=== PATIENT | male | born 1960 | race Asian ===

== ENCOUNTER 2022-02-01 19:12 | Emergency (ER) | payer OTHER ==
[~2022-02-01] VITALS: Ht 160 cm; Wt 54.0 kg
[2022-02-01 19:43] LABS: PLATELET COUNT 239 K/uL (142-355)
[2022-02-01 20:12] LABS: POTASSIUM 4.4 mmol/L (3.6-5.2)
[2022-02-01 20:35] VITALS: BP 131/58; TEMP 97.3
[2022-02-02] MEDS ORDERED: QUETIAPINE25 MG PO (10:01)
[2022-02-02] MEDS ORDERED: GLIM4TAB PO (10:02)
[2022-02-02] MEDS ORDERED: VITAMIN D50000 UNIT PO (10:03)
[2022-02-02] MEDS ORDERED: AMLODIPINE BESYLATE PO (10:04)
[2022-02-02] MEDS ORDERED: IPRAAER INH (10:05)
== END 2022-02-01 20:35 | disposition still patient (30) ==
LOC: ED 19:12
PROVIDERS: Hospitalist
DX: F03.91 Unspecified dementia, unspecified severity, with behavioral disturbance (principal); R45.1 Restlessness and agitation; Q90.9 Down syndrome, unspecified; N18.9 Chronic kidney disease, unspecified; Z11.52 Encounter for screening for COVID-19; Z04.6 Encounter for general psychiatric examination, requested by authority
CPT/HCPCS: 36415; 80053; 85027; 87635; 93005; 99283; U0003